=== PATIENT | female | born 1960 | race Caucasian/White ===

== ENCOUNTER → 2018-09-24 | Outpatient (CLI) | payer OTHER ==
[~2018-09-24] MED LIST: AMLODIPINE BESYL5 MG PO; ASPIRIN ADULT L81 M2 PO; BAYER ASPIRIN C81 MG PO; CEFDINIR300 MG PO; COREG6.25 MG PO; COZAAR50 M1 PO; GUAIFENESIN600 MG PO; HYDROCHLOROTH12.5 M3 PO; HYDROCODONE BIT1 T11 PO; IMDUR SA60 M1 PO; ISOSORBIDE MONO60 MG PO; LEVAQUIN750 M1 PO; METOPROLOL SUC100 M1 PO; METOPROLOL SUC100 M2 PO; MOTRIN800 MG PO; PREDNISONE10 MG PO; SIMVASTATIN80 MG PO; SULFAMETHOXAZOLE-TMP PO; TYLENOL500 MG PO; VENTOLIN H0.09 MG/AC INH
[2018-09-24 16:21] LABS: BILIRUBIN NEGATIVE (NEGATIVE); BLOOD 2+ (NEGATIVE); CLARITY SL CLOUDY (CLEAR); COLOR YELLOW (YELLOW); GLUCOSE NEGATIVE (NEGATIVE); KETONE NEGATIVE (NEGATIVE); LEUKO ESTERASE 2+ (NEGATIVE); NITRITE NEGATIVE (NEGATIVE); SPECIFIC GRAVITY 1.025 (1.005-1.030); UROBILINOGEN 0.2 E.U./dl (0.2-1.0)
[2018-09-24 16:26] LABS: BASO % 0.4 % (0.0-1.0); EOS # 0.4 10*3/uL (0.0-0.4); EOS % 4.2 % (1.0-4.0); HEMATOCRIT 49.3 % (37.0-47.0); HEMOGLOBIN 15.4 g/dl (12.0-16.0); LYMPH # 2.7 10*3/uL (1.3-4.4); LYMPH % 29.7 % (27.0-41.0); MEAN CELL VOLUME 96.3 fl (81.0-99.0); MEAN CORPUSCULAR HGB 30.1 pg (27.0-31.0); MEAN CORPUSCULAR HGB CONC 31.2 g/dl (33.0-37.0); MEAN PLATELET VOLUME 10.5 fl (9.6-12.3); MONO # 0.5 10*3/uL (0.1-1.0); MONO % 5.7 % (3.0-9.0); NEUT # 5.5 10*3/uL (2.3-7.9); NEUT % 59.6 % (47.0-73.0); PLATELET COUNT AUTOMATED 218 10*3/uL (130-400); RED BLOOD COUNT 5.12 10*6/uL (4.10-5.10); RED CELL DISTRI WIDTH 13.8 % (0-14.5); RETICULOCYTE % 1.67 % (0.50-2.50); WHITE BLOOD COUNT 9.2 10*3/uL (4.8-10.8)
[2018-09-24 16:39] LABS: BACTERIA 3+; EPITHELIAL CELLS 16-20; RBC 16-20 rbc/hpf (0-2); WBC 51-100 wbc/hpf (0-5)
[2018-09-24 16:49] LABS: ALBUMIN 3.4 gm/dl (3.1-4.5); ALKALINE PHOSPHATASE 91 U/L (45-117); BUN 11 mg/dl (7-24); CHLORIDE 105 mmol/L (98-107); CHOLESTEROL 201 mg/dL (<200); CREATININE 0.87 mg/dL (0.55-1.02); GAMMA GLUTAMYL TRANSPEPTIDASE 147 U/L (5-55); HDL CHOLESTEROL 43 mg/dl (40-60); IRON 72 ug/dL (50-170); LDL CHOLESTEROL 90 mg/dL (9-159); POTASSIUM 3.5 mmol/L (3.5-5.1); SGOT/AST 24 IU/L (3-35); SGPT/ALT 29 U/L (12-78); SODIUM 141 mmol/L (136-145); TOTAL PROTEIN 7.8 gm/dL (6.4-8.2); TRIGLYCERIDES 341 mg/dl (<150); VLDL CHOLESTEROL 68 mg/dL (6-40)
[2018-09-24 17:57] LABS: VITAMIN D, 25-HYDROXY 11.3 ng/mL (30-100)
[2018-09-24 17:58] LABS: FERRITIN 69.5 ng/mL (10.0-291.0)
== END | disposition home or self-care (01) ==
LOC: LAB 15:17
PROVIDERS: Family Medicine
DX: E55.9 Vitamin D deficiency, unspecified (principal); R79.89 Other specified abnormal findings of blood chemistry

== ENCOUNTER 2019-04-23 12:00 | Inpatient (IN) | payer OTHER ==
[~2019-04-23] VITALS: Ht 165.1 cm; Wt 128.8 kg
[2019-04-23 12:00] VITALS: BP 140/72
[~2019-04-23 12:00] MED LIST changes: +AUGMENTIN 875-875 MG PO; +DULCOLAX STOOL100 M1 PO; +METAMUCIL FIBE3.4 GM PO; +NORCO 5-325 TA1 EACH PO; +PREPARATION H1 EAC1 R
[2019-04-23 12:38] LABS: BASO # 0.1 10*3/uL (0.0-0.1); BASO % 0.5 % (0.0-1.0); EOS # 0.3 10*3/uL (0.0-0.4); EOS % 2.7 % (1.0-4.0); HEMATOCRIT 47.2 % (37.0-47.0); HEMOGLOBIN 15.3 g/dl (12.0-16.0); LYMPH # 2.5 10*3/uL (1.3-4.4); LYMPH % 26.4 % (27.0-41.0); MEAN CELL VOLUME 92.7 fl (81.0-99.0); MEAN CORPUSCULAR HGB 30.1 pg (27.0-31.0); MEAN CORPUSCULAR HGB CONC 32.4 g/dl (33.0-37.0); MEAN PLATELET VOLUME 10.2 fl (9.6-12.3); MONO # 0.7 10*3/uL (0.1-1.0); MONO % 7.7 % (3.0-9.0); NEUT % 62.5 % (47.0-73.0); PLATELET COUNT AUTOMATED 380 10*3/uL (130-400); RED BLOOD COUNT 5.09 10*6/uL (4.10-5.10); RED CELL DISTRI WIDTH 14.3 % (0-14.5); WHITE BLOOD COUNT 9.6 10*3/uL (4.8-10.8)
[2019-04-23 12:42] LABS: BILIRUBIN NEGATIVE (NEGATIVE); BLOOD 3+ (NEGATIVE); CLARITY CLOUDY (CLEAR); COLOR YELLOW (YELLOW); GLUCOSE NEGATIVE (NEGATIVE); KETONE NEGATIVE (NEGATIVE); LEUKO ESTERASE TRACE (NEGATIVE); NITRITE NEGATIVE (NEGATIVE); SPECIFIC GRAVITY 1.015 (1.005-1.030); UROBILINOGEN 0.2 E.U./dl (0.2-1.0)
--- NOTE | 2019-04-23 13:00 | NUR ---
RESTING IN BED QUIETLY. TELL ME MEDICAINE "HELPED A LITTLE". NO EVIDENCE OF EMESIS SINCE ARRIVAL.
[2019-04-23 13:01] LABS: BACTERIA 2+; EPITHELIAL CELLS 30-40; RBC 31-40 rbc/hpf (0-2)
[2019-04-23 13:11] LABS: ALBUMIN 3.6 gm/dl (3.1-4.5); ALKALINE PHOSPHATASE 101 U/L (45-117); BUN 10 mg/dl (7-24); CHLORIDE 103 mmol/L (98-107); CREATININE 0.88 mg/dL (0.55-1.02); LIPASE 64 U/L (73-393); POTASSIUM 3.3 mmol/L (3.5-5.1); SGOT/AST 14 IU/L (3-35); SGPT/ALT 36 U/L (12-78); SODIUM 140 mmol/L (136-145); TOTAL PROTEIN 7.1 gm/dL (6.4-8.2)
--- NOTE | 2019-04-23 15:40 | NUR ---
FENTANYL EFFECTIVE FOR PAIN PER PT.
[2019-04-23 15:53] VITALS: BP 127/71
--- NOTE | 2019-04-23 16:19 | NUR ---
Time: 1544 A 59 year old FEMALE admitted to under services of BRYANT DASILVA DO, Pt. arrived via bed from ER. Chief complaint: ABD PAIN. KIMBERLEY FLAHERTY
[2019-04-23] MEDS ORDERED: GAS-X125 MG PO (16:22)
[2019-04-23 19:36] VITALS: BP 105/62
--- NOTE | 2019-04-23 20:31 | NUR ---
MEDICATED WITH NORCO FOR C/O ABDOMINAL PAIN RATED A 7/10.
--- NOTE | 2019-04-23 22:30 | NUR ---
RESTING IN BED; VOICES NO C/O AT THIS TIME. CALL LIGHT WITHIN REACH.
--- NOTE | 2019-04-23 23:51 | NUR ---
PT. C/O ABD PAIN RATED 8-9/10 MORPHINE GIVEN FOR PAIN. ZOFRAN GIVEN FOR SLIGHT NAUSEA AND RESTORIL TO HELP PT. SLEEP. SEE MAR.
[2019-04-24] VITALS: BP 105/52
--- NOTE | 2019-04-24 02:00 | NUR ---
RESTING IN BED WITH EYES CLOSED; MEDICATIONS GIVEN EARLIER APPARENTLY EFFECTIVE. CALL LIGHT WITHIN REACH.
--- NOTE | 2019-04-24 06:09 | NUR ---
MEDICATED WITH MS FOR C/O ABDOMINAL DISCOMFORT RATED A 7/10.
--- NOTE | 2019-04-24 06:29 | NUR ---
MEDICATED WITH DULCOLAX FOR C/O CONSTIPATION.
[2019-04-24 07:02] LABS: BASO # 0.1 10*3/uL (0.0-0.1); BASO % 0.7 % (0.0-1.0); EOS # 0.3 10*3/uL (0.0-0.4); EOS % 4.1 % (1.0-4.0); HEMATOCRIT 43.8 % (37.0-47.0); HEMOGLOBIN 13.6 g/dl (12.0-16.0); LYMPH # 2.6 10*3/uL (1.3-4.4); LYMPH % 34.9 % (27.0-41.0); MEAN CELL VOLUME 93.8 fl (81.0-99.0); MEAN CORPUSCULAR HGB 29.1 pg (27.0-31.0); MEAN CORPUSCULAR HGB CONC 31.1 g/dl (33.0-37.0); MEAN PLATELET VOLUME 9.7 fl (9.6-12.3); MONO # 0.6 10*3/uL (0.1-1.0); MONO % 7.3 % (3.0-9.0); NEUT % 52.7 % (47.0-73.0); PLATELET COUNT AUTOMATED 291 10*3/uL (130-400); RED BLOOD COUNT 4.67 10*6/uL (4.10-5.10); RED CELL DISTRI WIDTH 14.3 % (0-14.5); WHITE BLOOD COUNT 7.5 10*3/uL (4.8-10.8)
[2019-04-24 07:24] LABS: ALBUMIN 3.3 gm/dl (3.1-4.5); ALKALINE PHOSPHATASE 90 U/L (45-117); BUN 8 mg/dl (7-24); CHLORIDE 106 mmol/L (98-107); CREATININE 0.73 mg/dL (0.55-1.02); PHOSPHOROUS 3.3 mg/dL (2.5-4.9); POTASSIUM 3.3 mmol/L (3.5-5.1); SGOT/AST 17 IU/L (3-35); SGPT/ALT 33 U/L (12-78); SODIUM 139 mmol/L (136-145); TOTAL PROTEIN 6.5 gm/dL (6.4-8.2)
[2019-04-24 08:00] VITALS: BP 104/50
--- NOTE | 2019-04-24 08:16 | NUR ---
24 HR chart check completed.
--- NOTE | 2019-04-24 09:00 | NUR ---
[employer] in to talk to patient. Patient states lives at home with . There are few steps in the home. Physician: wilmar fermin [facility]: [facility] Patient's level of ADLs: INDEPENDENT Patient has working utilities: all working DME: none Follow-up physician's appointment after d/c: will be made by hospitalist nurse director upon discharge Does patient want to access PORTAL?: no Discharge plan discussed with patient, she lives at home with , she works and drives, she states she will be returning home when able and denies any home needs, case management will follow. RHONDA ALEXANDRA
[2019-04-24 12:00] VITALS: BP 110/40
--- NOTE | 2019-04-24 12:17 | NUR ---
DR. MUNGUIA CALLED. CONSULT COMPLETED. STATED HE WOULD BE UP TO SEE THAT PATIENT THIS AFTERNOON.
[2019-04-24 15:59] VITALS: BP 95/48
[2019-04-24 20:00] VITALS: BP 102/58; BP 79/40
[2019-04-25] VITALS: BP 110/68
[2019-04-25 06:25] LABS: BASO # 0.1 10*3/uL (0.0-0.1); BASO % 0.7 % (0.0-1.0); EOS # 0.4 10*3/uL (0.0-0.4); EOS % 4.6 % (1.0-4.0); HEMATOCRIT 41.6 % (37.0-47.0); HEMOGLOBIN 12.9 g/dl (12.0-16.0); LYMPH # 2.2 10*3/uL (1.3-4.4); MEAN CELL VOLUME 96.5 fl (81.0-99.0); MEAN CORPUSCULAR HGB 29.9 pg (27.0-31.0); MEAN PLATELET VOLUME 9.8 fl (9.6-12.3); MONO # 0.6 10*3/uL (0.1-1.0); MONO % 7.6 % (3.0-9.0); NEUT # 4.4 10*3/uL (2.3-7.9); PLATELET COUNT AUTOMATED 239 10*3/uL (130-400); RED BLOOD COUNT 4.31 10*6/uL (4.10-5.10); RED CELL DISTRI WIDTH 14.4 % (0-14.5); WHITE BLOOD COUNT 7.6 10*3/uL (4.8-10.8)
[2019-04-25 06:37] LABS: BUN 11 mg/dl (7-24); CHLORIDE 109 mmol/L (98-107); CREATININE 0.86 mg/dL (0.55-1.02); POTASSIUM 3.6 mmol/L (3.5-5.1); SODIUM 140 mmol/L (136-145)
[2019-04-25 08:00] VITALS: BP 122/72
--- NOTE | 2019-04-25 09:00 | NUR ---
case management visits with patient, she will return home when able and denies any home needs
--- NOTE | 2019-04-25 09:03 | NUR ---
MEDICATED WITH NORCO FOR COMPLAINTS OF MID EPIGASTRIC PAIN, RATES PAIN A 6 ON A SCALE OF 1-10
[2019-04-25 12:00] VITALS: BP 128/69
[2019-04-25 12:25] VITALS: BP 110/72; BP 112/70
[2019-04-25] MEDS ORDERED: TOPROL XL25 MG PO (13:05)
[2019-04-25] MEDS ORDERED: MIRALAX119 GM PO (13:09)
[2019-04-25] MEDS ORDERED: SIMETHICONE80 MG PO (13:10)
--- NOTE | 2019-04-25 13:55 | NUR ---
Discharge instructions reviewed with patient/family. Patient receptive and verbalizes understanding. Follow-up care arranged. Written instructions given to patient/family. TERESSA JOHNSON
== END 2019-04-25 13:55 | disposition home or self-care (01) | DRG 690 ==
LOC: ED 12:00 → EDHOLD 15:09 → 4E 15:09
PROVIDERS: Emergency Medicine; ADMIT Internal Medicine
DX: N39.0 Urinary tract infection, site not specified (principal); Z68.42 Body mass index [BMI] 45.0-49.9, adult; E87.6 Hypokalemia; R31.9 Hematuria, unspecified; I10 Essential (primary) hypertension; R00.1 Bradycardia, unspecified; R73.9 Hyperglycemia, unspecified; K64.9 Unspecified hemorrhoids; E66.01 Morbid (severe) obesity due to excess calories; E83.41 Hypermagnesemia; D72.810 Lymphocytopenia; K62.89 Other specified diseases of anus and rectum; E78.5 Hyperlipidemia, unspecified; I25.2 Old myocardial infarction; Z90.49 Acquired absence of other specified parts of digestive tract; Z87.891 Personal history of nicotine dependence; Z82.49 Family history of ischemic heart disease and other diseases of the circulatory system; Z79.82 Long term (current) use of aspirin; Z79.899 Other long term (current) drug therapy

== ENCOUNTER → 2019-05-23 | Day surgery (SDC) | payer OTHER ==
[~2019-05-23] VITALS: Ht 165.1 cm; Wt 136.1 kg
[~2019-05-23] MED LIST changes: +AMITIZA24 MCG PO; +GAS-X125 MG PO; +IBU800 MG PO; +MIRALAX119 GM PO; +SIMETHICONE80 MG PO; +TOPROL XL25 MG PO
--- NOTE | ~2019-05-23 | O ---
[place], [place] OPERATIVE NOTE NAME: DAMARIS TORREZ UNIT #: [id number] ROOM: DOCTOR: CLAUDIA COLINDRES MD BIRTHDATE: [birth year] DOS: 05/23/2019 INDICATIONS: This is a 59-year-old patient who has presented with chief complaint of constipation despite the fact that she is on MiraLax and stool softeners. She has difficulty evacuating her bowels and sensation of fullness. ALLERGIES: No known medication. FAMILY HISTORY: Noncontributory. PAST SURGICAL HISTORY: Dental abscess, cholecystectomy. PAST MEDICAL HISTORY: Obesity, hypertension. SOCIAL HISTORY: Nonsmoker, nonalcohol consumer. PROCEDURE: Today's procedure part of investigation is colonoscopy. PREMEDICATION: Propofol. SCOPE: Olympus forward-viewing colonoscope 10L video. REPORT: After putting the patient in left lateral position and application of lubricant to the scope, scope was introduced. Thereafter, under direct visualization, advanced through the length of colon without difficulty. Base of the cecum explored, appendiceal orifice identified, ileocecal valve was defined and rare diverticulosis mild degree was noticed. The air was suctioned out. The patient was extubated, tolerated the procedure well. IMPRESSION: Mild diverticulosis. PLAN AND DISCUSSION: High fiber diet. ACTIVITY: Ad giles. FOLLOWUP: As outpatient. Furthermore, the patient has been trying a stool softener and MiraLax therapy to no avail. Therefore, we are going to start her on Amitiza 24 mcg 1 every day and helping her constipation issues. [place], [place] OPERATIVE NOTE NAME: DAMARIS TORREZ UNIT #: [id number] ROOM: DOCTOR: CLAUDIA COLINDRES MD BIRTHDATE: [birth year] CLAUDIA COLINDRES MD CM:OPRECORD:OPERATIVE NOTE 1419 [id number] CLAUDIA COLINDRES MD 05/23/19 1442 interface
[2019-05-23 13:07] VITALS: BP 150/94
[2019-05-23 14:13] VITALS: BP 155/85
[2019-05-23 14:29] VITALS: BP 152/89
[2019-05-23 14:41] VITALS: BP 157/77
== END | disposition home or self-care (01) ==
LOC: SDC 05-19 14:00
DX: K59.00 Constipation, unspecified (principal); K57.30 Diverticulosis of large intestine without perforation or abscess without bleeding; I10 Essential (primary) hypertension; I25.2 Old myocardial infarction; E66.01 Morbid (severe) obesity due to excess calories; Z68.42 Body mass index [BMI] 45.0-49.9, adult; Z98.890 Other specified postprocedural states; Z79.899 Other long term (current) drug therapy; Z90.49 Acquired absence of other specified parts of digestive tract; Z83.3 Family history of diabetes mellitus; Z82.49 Family history of ischemic heart disease and other diseases of the circulatory system

== ENCOUNTER → 2019-07-09 | Day surgery (SDC) | payer OTHER ==
[~2019-07-09] VITALS: Ht 165.1 cm; Wt 127.0 kg
[~2019-07-09] MED LIST changes: +ACID REDUCER20 MG PO; +LINZESS145 MC1 PO
[2019-07-09 07:03] VITALS: BP 142/67
[2019-07-09 08:07] VITALS: BP 140/71
[2019-07-09 08:22] VITALS: BP 137/69
[2019-07-09 08:37] VITALS: BP 131/73
== END | disposition home or self-care (01) ==
LOC: SDC 07-08 14:45
DX: K29.50 Unspecified chronic gastritis without bleeding (principal); I10 Essential (primary) hypertension; J45.909 Unspecified asthma, uncomplicated; E66.01 Morbid (severe) obesity due to excess calories; Z68.42 Body mass index [BMI] 45.0-49.9, adult; Z79.899 Other long term (current) drug therapy; Z98.890 Other specified postprocedural states; Z83.3 Family history of diabetes mellitus; Z82.49 Family history of ischemic heart disease and other diseases of the circulatory system

== ENCOUNTER 2020-08-05 18:17 | Emergency (ER) | payer OTHER ==
[2020-08-05] MEDS ORDERED: CYCLOBENZAPRINE10 MG PO (21:40)
[2020-08-05] MEDS ORDERED: TYLENOL W/CODEI1 TA4 PO (21:40)
== END 2020-08-05 21:59 | disposition home or self-care (01) ==
LOC: ED 18:17
DX: S19.9XXA Unspecified injury of neck, initial encounter (principal); M54.5 Low back pain; Z79.899 Other long term (current) drug therapy; Z90.49 Acquired absence of other specified parts of digestive tract; V89.2XXA Person injured in unspecified motor-vehicle accident, traffic, initial encounter; Y93.89 Activity, other specified; Y92.89 Other specified places as the place of occurrence of the external cause; Y99.8 Other external cause status

== ENCOUNTER → 2021-06-03 | Outpatient (CLI) | payer OTHER ==
[~2021-06-03] MED LIST changes: +CYCLOBENZAPRINE10 MG PO; +TYLENOL W/CODEI1 TA4 PO
== END | disposition home or self-care (01) ==
LOC: RAD 14:14
PROVIDERS: ATTEND Family Medicine
DX: R91.8 Other nonspecific abnormal finding of lung field (principal); I51.7 Cardiomegaly; R09.89 Other specified symptoms and signs involving the circulatory and respiratory systems

== ENCOUNTER → 2021-07-04 | Outpatient (CLI) | payer OTHER | END | disposition home or self-care (01) | LOC: RAD 13:47 | PROVIDERS: ATTEND Family Medicine | DX: M17.0 Bilateral primary osteoarthritis of knee (principal); M51.37 Other intervertebral disc degeneration, lumbosacral region; M25.762 Osteophyte, left knee; M25.761 Osteophyte, right knee ==

== ENCOUNTER → 2021-08-03 | Outpatient (CLI) | payer OTHER | LOC: COVID19 17:36 | PROVIDERS: ATTEND Student in an Organized Health Care Education/Training Program | DX: Z11.52 Encounter for screening for COVID-19 (principal); Z20.822 Contact with and (suspected) exposure to COVID-19 ==

== ENCOUNTER → 2022-01-31 | Outpatient (CLI) | payer OTHER ==
[2022-01-31 13:08] LABS: BASO % 0.5 % (0.0-1.0); BILIRUBIN Negative (Negative); BLOOD 3+ (Negative); CLARITY Cloudy (Clear); COLOR Yellow (Yellow); EOS # 0.4 10*3/uL (0.0-0.4); GLUCOSE Negative (Negative); KETONE Negative (Negative); LEUKO ESTERASE 3+ (Negative); LYMPH # 1.3 10*3/uL (1.3-4.4); MEAN CORPUSCULAR HGB 29.2 pg (27.0-31.0); MEAN CORPUSCULAR HGB CONC 31.1 g/dl (33.0-37.0); MEAN PLATELET VOLUME 9.2 fl (9.6-12.3); MONO # 0.9 10*3/uL (0.1-1.0); MONO % 9.8 % (3.0-9.0); NEUT # 6.1 10*3/uL (2.3-7.9); NITRITE Negative (Negative); PLATELET COUNT AUTOMATED 363 10*3/uL (130-400); RED CELL DISTRI WIDTH 13.8 % (0-14.5); UROBILINOGEN 0.2 E.U./dl (0.0-1.0); WHITE BLOOD COUNT 8.8 10*3/uL (4.8-10.8)
[2022-01-31 13:34] LABS: ALKALINE PHOSPHATASE 156 U/L (45-117); BUN 7 mg/dl (7-24); CHLORIDE 104 mmol/L (98-107); CHOLESTEROL 194 mg/dL (<200); CREATININE 0.82 mg/dL (0.55-1.02); GAMMA GLUTAMYL TRANSPEPTIDASE 176 U/L (5-55); IRON 30 ug/dL (50-170); LDL CHOLESTEROL 117 mg/dL (9-159); POTASSIUM 3.8 mmol/L (3.5-5.1); SGOT/AST 28 IU/L (3-35); SGPT/ALT 26 U/L (12-78); SODIUM 142 mmol/L (136-145); TOTAL IRON BINDING CAPACITY 371 ug/dl (250-450); TRIGLYCERIDES 157 mg/dl (<150)
[2022-01-31 13:40] LABS: TOTAL PROTEIN 7.7 gm/dL (6.4-8.2)
[2022-01-31 13:43] LABS: EPITHELIAL CELLS 16-20; RBC 41-50 rbc/hpf (0-2); WBC TNTC wbc/hpf (0-5)
[2022-01-31 13:44] LABS: BACTERIA 2+
== END | disposition home or self-care (01) ==
LOC: LAB 12:27
PROVIDERS: ATTEND Family Medicine
DX: J44.9 Chronic obstructive pulmonary disease, unspecified (principal); I51.7 Cardiomegaly; E78.5 Hyperlipidemia, unspecified; R79.89 Other specified abnormal findings of blood chemistry; R53.83 Other fatigue; R74.8 Abnormal levels of other serum enzymes

== ENCOUNTER → 2022-04-26 | Outpatient (CLI) | payer OTHER ==
[2022-04-26 13:26] LABS: BASO % 0.4 % (0.0-1.0); EOS # 0.4 10*3/uL (0.0-0.4); EOS % 3.9 % (1.0-4.0); LYMPH # 2.8 10*3/uL (1.3-4.4); LYMPH % 25.3 % (27.0-41.0); MEAN CELL VOLUME 92.2 fl (81.0-99.0); MEAN CORPUSCULAR HGB 28.9 pg (27.0-31.0); MEAN CORPUSCULAR HGB CONC 31.3 g/dl (33.0-37.0); MEAN PLATELET VOLUME 9.3 fl (9.6-12.3); MONO # 0.7 10*3/uL (0.1-1.0); MONO % 6.1 % (3.0-9.0); NEUT % 64.1 % (47.0-73.0); PLATELET COUNT AUTOMATED 309 10*3/uL (130-400); RED BLOOD COUNT 4.99 10*6/uL (4.10-5.10); RED CELL DISTRI WIDTH 15.3 % (0-14.5); WHITE BLOOD COUNT 10.9 10*3/uL (4.8-10.8)
[2022-04-26 13:49] LABS: BUN 9 mg/dl (7-24); CHLORIDE 108 mmol/L (98-107); SODIUM 140 mmol/L (136-145)
[2022-04-26 14:01] LABS: ALKALINE PHOSPHATASE 65 U/L (45-117); CHOLESTEROL 175 mg/dL (<200); CREATININE 0.77 mg/dL (0.55-1.02); LDL CHOLESTEROL 99 mg/dL (9-159); SGOT/AST 10 IU/L (3-35); SGPT/ALT 16 U/L (12-78); TOTAL PROTEIN 7.1 gm/dL (6.4-8.2); TRIGLYCERIDES 134 mg/dl (<150)
== END | disposition home or self-care (01) ==
LOC: LAB 12:48
PROVIDERS: ATTEND Internal Medicine Cardiovascular Disease
DX: I10 Essential (primary) hypertension (principal); R55 Syncope and collapse; E66.01 Morbid (severe) obesity due to excess calories; R07.89 Other chest pain; R60.9 Edema, unspecified; R06.02 Shortness of breath; R06.00 Dyspnea, unspecified

== ENCOUNTER → 2023-03-23 | Outpatient (CLI) | payer MEDICAID ==
[2023-03-23 13:53] LABS: BASO # 0.1 10*3/uL (0.0-0.1); BASO % 0.6 % (0.0-1.0); EOS # 0.4 10*3/uL (0.0-0.4); EOS % 4.1 % (1.0-4.0); HEMATOCRIT 50.7 % (37.0-47.0); LYMPH # 2.4 10*3/uL (1.3-4.4); LYMPH % 23.9 % (27.0-41.0); MEAN CELL VOLUME 94.6 fl (81.0-99.0); MEAN CORPUSCULAR HGB 29.1 pg (27.0-31.0); MEAN CORPUSCULAR HGB CONC 30.8 g/dl (33.0-37.0); MEAN PLATELET VOLUME 9.3 fl (9.6-12.3); MONO # 0.7 10*3/uL (0.1-1.0); MONO % 6.8 % (3.0-9.0); NEUT # 6.6 10*3/uL (2.3-7.9); NEUT % 64.1 % (47.0-73.0); PLATELET COUNT AUTOMATED 293 10*3/uL (130-400); RED BLOOD COUNT 5.36 10*6/uL (4.10-5.10); RED CELL DISTRI WIDTH 14.6 % (0-14.5); RETICULOCYTE % 1.32 % (0.50-2.50); WHITE BLOOD COUNT 10.2 10*3/uL (4.8-10.8)
[2023-03-23 13:55] LABS: BILIRUBIN Negative (Negative); BLOOD 3+ (Negative); CLARITY Cloudy (Clear); COLOR Orange (Yellow); GLUCOSE Negative (Negative); KETONE Negative (Negative); LEUKO ESTERASE 3+ (Negative); NITRITE Negative (Negative); UROBILINOGEN 0.2 E.U./dl (0.0-1.0)
[2023-03-23 14:14] LABS: BACTERIA 1+; RBC TNTC rbc/hpf (0-2); WBC TNTC wbc/hpf (0-5)
[2023-03-23 14:26] LABS: ALKALINE PHOSPHATASE 62 U/L (46-116); BUN 7 mg/dl (9-23); CHLORIDE 108 mmol/L (98-107); CHOLESTEROL 186 mg/dL (<200); GAMMA GLUTAMYL TRANSPEPTIDASE 13 U/L (0-73); LDL CHOLESTEROL 104 mg/dL (9-159); POTASSIUM 3.8 mmol/L (3.4-5.1); TOTAL PROTEIN 7.3 gm/dL (6.0-8.0); TRIGLYCERIDES 168 mg/dl (<150)
[2023-03-23 14:28] LABS: VITAMIN D, 25-HYDROXY 14.6 ng/mL (30-100)
[2023-03-23 14:30] LABS: SGPT/ALT < 7 U/L (10-49)
== END | disposition home or self-care (01) ==
LOC: LAB 13:04
PROVIDERS: ATTEND Family Medicine
DX: E55.9 Vitamin D deficiency, unspecified (principal); R79.89 Other specified abnormal findings of blood chemistry; R53.83 Other fatigue; E78.5 Hyperlipidemia, unspecified

== ENCOUNTER → 2023-11-14 | Outpatient (CLI) | payer MEDICARE | END | disposition home or self-care (01) | LOC: RAD 15:10 | PROVIDERS: ATTEND Family Medicine | DX: R06.02 Shortness of breath (principal) ==

== ENCOUNTER → 2024-01-04 | Outpatient (CLI) | payer MEDICARE ==
[2024-01-04 11:29] LABS: BASO # 0.1 10*3/uL (0.0-0.1); BASO % 0.6 % (0.0-1.0); BILIRUBIN Negative (Negative); BLOOD 3+ (Negative); CLARITY Turbid (Clear); COLOR Orange (Yellow); EOS # 0.3 10*3/uL (0.0-0.4); EOS % 4.2 % (1.0-4.0); GLUCOSE Negative (Negative); HEMATOCRIT 43.6 % (37.0-47.0); KETONE Trace (Negative); LEUKO ESTERASE 2+ (Negative); LYMPH # 2.6 10*3/uL (1.3-4.4); LYMPH % 32.3 % (27.0-41.0); MEAN CELL VOLUME 93.4 fl (81.0-99.0); MEAN CORPUSCULAR HGB 28.5 pg (27.0-31.0); MEAN CORPUSCULAR HGB CONC 30.5 g/dl (33.0-37.0); MEAN PLATELET VOLUME 9.4 fl (9.6-12.3); MONO # 0.5 10*3/uL (0.1-1.0); MONO % 6.1 % (3.0-9.0); NEUT # 4.5 10*3/uL (2.3-7.9); NEUT % 56.5 % (47.0-73.0); NITRITE Negative (Negative); PH 5.5 (4.5-8.0); PLATELET COUNT AUTOMATED 317 10*3/uL (130-400); RED BLOOD COUNT 4.67 10*6/uL (4.10-5.10); RED CELL DISTRI WIDTH 14.4 % (0-14.5); RETICULOCYTE % 1.45 % (0.50-2.50); SPECIFIC GRAVITY >= 1.030 (1.001-1.030); WHITE BLOOD COUNT 7.9 10*3/uL (4.8-10.8)
[2024-01-04 12:00] LABS: ALKALINE PHOSPHATASE 59 U/L (46-116); BUN 7 mg/dl (9-23); CHLORIDE 107 mmol/L (98-107); CHOLESTEROL 185 mg/dL (<200); GAMMA GLUTAMYL TRANSPEPTIDASE 23 U/L (0-73); LDL CHOLESTEROL 105 mg/dL (9-159); POTASSIUM 3.9 mmol/L (3.4-5.1); T3 UPTAKE 25.7 % (22.4-36.7); TOTAL PROTEIN 6.9 gm/dL (6.0-8.0); TRIGLYCERIDES 187 mg/dl (<150)
[2024-01-04 12:05] LABS: SGPT/ALT < 7 U/L (5-49); VITAMIN D, 25-HYDROXY 11.6 ng/mL (30-100)
[2024-01-04 13:40] LABS: BACTERIA 4+; EPITHELIAL CELLS 16-20; RBC TNTC rbc/hpf (0-2); WBC TNTC wbc/hpf (0-5)
== END | disposition home or self-care (01) ==
LOC: LAB 10:55
PROVIDERS: ATTEND Family Medicine
DX: E55.9 Vitamin D deficiency, unspecified (principal); R79.89 Other specified abnormal findings of blood chemistry; R53.83 Other fatigue; E78.5 Hyperlipidemia, unspecified

== ENCOUNTER → 2024-03-17 | Outpatient (CLI) | payer MEDICARE ==
[2024-03-17 10:24] LABS: BILIRUBIN Negative (Negative); BLOOD 3+ (Negative); CLARITY Turbid (Clear); COLOR Yellow (Yellow); GLUCOSE Negative (Negative); KETONE Trace (Negative); LEUKO ESTERASE 3+ (Negative); NITRITE Negative (Negative); PH 5.5 (4.5-8.0); SPECIFIC GRAVITY 1.025 (1.001-1.030)
[2024-03-17 10:51] LABS: ALKALINE PHOSPHATASE 69 U/L (46-116); CHOLESTEROL 197 mg/dL (<200); CPK 39 U/L (34-171); GAMMA GLUTAMYL TRANSPEPTIDASE 26 U/L (0-73); LDL CHOLESTEROL 98 mg/dL (9-159); TOTAL PROTEIN 7.3 gm/dL (6.0-8.0); TRIGLYCERIDES 259 mg/dl (<150)
[2024-03-17 10:59] LABS: SGPT/ALT < 7 U/L (5-49)
== END | disposition home or self-care (01) ==
LOC: LAB 09:43
PROVIDERS: ATTEND Family Medicine
DX: R53.83 Other fatigue (principal); R79.89 Other specified abnormal findings of blood chemistry; E78.5 Hyperlipidemia, unspecified

== ENCOUNTER → 2024-06-17 | Outpatient (CLI) | payer MEDICARE ==
[2024-06-17 12:16] LABS: BASO % 0.6 % (0.0-1.0); EOS # 0.3 10*3/uL (0.0-0.4); EOS % 4.4 % (1.0-4.0); HEMATOCRIT 40.6 % (37.0-47.0); MEAN CELL VOLUME 85.3 fl (81.0-99.0); MEAN CORPUSCULAR HGB 25.4 pg (27.0-31.0); MEAN CORPUSCULAR HGB CONC 29.8 g/dl (33.0-37.0); MEAN PLATELET VOLUME 9.8 fl (9.6-12.3); MONO # 0.5 10*3/uL (0.1-1.0); MONO % 6.3 % (3.0-9.0); NEUT # 3.9 10*3/uL (2.3-7.9); NEUT % 54.5 % (47.0-73.0); PLATELET COUNT AUTOMATED 307 10*3/uL (130-400); RED BLOOD COUNT 4.76 10*6/uL (4.10-5.10); RED CELL DISTRI WIDTH 17.2 % (0-14.5); WHITE BLOOD COUNT 7.2 10*3/uL (4.8-10.8)
[2024-06-17 12:33] LABS: BILIRUBIN Negative (Negative); BLOOD 3+ (Negative); CLARITY Cloudy (Clear); COLOR Yellow (Yellow); GLUCOSE Negative (Negative); KETONE Negative (Negative); LEUKO ESTERASE 3+ (Negative); NITRITE Negative (Negative); SPECIFIC GRAVITY 1.015 (1.001-1.030); UROBILINOGEN 0.2 E.U./dl (0.0-1.0)
[2024-06-17 12:46] LABS: RBC TNTC rbc/hpf (0-2); WBC TNTC wbc/hpf (0-5)
[2024-06-17 12:47] LABS: ALKALINE PHOSPHATASE 77 U/L (46-116); BUN 8 mg/dl (9-23); CHLORIDE 110 mmol/L (98-107); CHOLESTEROL 178 mg/dL (<200); LDL CHOLESTEROL 115 mg/dL (9-159); POTASSIUM 3.7 mmol/L (3.4-5.1); T3 UPTAKE 26.3 % (22.4-36.7); THYROXINE (T4) TOTAL 8.4 ug/dl (4.5-10.9); TOTAL PROTEIN 7.4 gm/dL (6.0-8.0); TRIGLYCERIDES 100 mg/dl (<150)
[2024-06-17 12:48] LABS: SGPT/ALT < 7 U/L (5-49)
[2024-06-17 12:49] LABS: VITAMIN D, 25-HYDROXY 17.5 ng/mL (30-100)
== END | disposition home or self-care (01) ==
LOC: LAB 11:24
PROVIDERS: ATTEND Family Medicine
DX: R79.89 Other specified abnormal findings of blood chemistry (principal); R53.83 Other fatigue; R78.5 Finding of other psychotropic drug in blood; R74.8 Abnormal levels of other serum enzymes; E55.9 Vitamin D deficiency, unspecified